=== PATIENT | male | born 1970 | race Two or more races ===

== ENCOUNTER 2017-05-15 11:19 | Outpatient (CLI) | payer OTHER | END 2017-05-15 11:29 | disposition home or self-care (01) | LOC: RAD 501 11:19 | DX: M79.671 Pain in right foot (principal) ==

== ENCOUNTER 2018-04-05 17:06 | Outpatient (CLI) | payer OTHER | END 2018-04-05 17:17 | disposition home or self-care (01) | LOC: LAB 17:06 | DX: J10.1 Influenza due to other identified influenza virus with other respiratory manifestations (principal); J06.9 Acute upper respiratory infection, unspecified ==